=== PATIENT | male | born 1960 | race Caucasian/White ===

== ENCOUNTER 2019-12-03 09:05 | Inpatient (IN) | payer MEDICAID ==
[~2019-12-03] VITALS: Ht 165.1 cm; Wt 53.2 kg
[2019-12-03] MEDS ORDERED: SODIUM CHLORIDE 0.9% 1,000 ML IV ONE (09:59)
[2019-12-03] MEDS ORDERED: KETOROLAC 30MG/ML VIAL IV STA (09:59)
[2019-12-03 10:21] LABS: BASOPHILS % 1.4 % (0.0-2.0); EOSINOPHILS % 1.5 % (0.0-5.0); HEMATOCRIT. 42.7 % (42.0-52.0); HEMOGLOBIN. 14.8 g/dL (14.0-18.0); MEAN CORPUSCULAR HEMOGLOBIN 33.3 pg (28.0-32.0); MEAN CORPUSCULAR VOLUME 96.5 fL (80.0-94.0); MEAN PLATELET VOLUME 6.8 fl (7.4-10.4); MONOCYTES % 9.2 % (2.0-8.0); NEUTROPHILS % 59.9 % (40.0-76.0); PLATELET 192 x1000/uL (130-400); RED BLOOD CELL COUNT 4.43 mill/uL (4.7-6.1)
[2019-12-03 10:27] LABS: CHLORIDE 106 mEq/L (98-107)
[2019-12-03] MEDS ORDERED: KETOROLAC 15MG/ML VIAL IV ONE (11:45)
[2019-12-03] MEDS ORDERED: CLONIDINE 0.1MG TABLET PO PRN (13:15)
[2019-12-03] MEDS ORDERED: ONDANSETRON HCL 4MG/2ML INJ IV PRN (13:15)
[2019-12-03 13:26] LABS: PHOSPHORUS 3.2 mg/dL (2.5-4.9)
[2019-12-03] MEDS ORDERED: CHLORDIAZEPOXIDE 25MG CAPSULE PO NR (15:08)
[2019-12-03] MEDS: DIPHENHYDRAMINE 50MG/ML VIAL IV PRN ×2 (15:15→15:18)
[2019-12-03] MEDS: CHLORDIAZEPOXIDE 25MG CAPSULE PO SCH (15:15)
[2019-12-03] MEDS ORDERED: LORAZEPAM 2MG/ML CPJ IV PRN (16:00)
[2019-12-03] MEDS ORDERED: LORAZEPAM 1MG TABLET PO PRN (18:30)
[2019-12-03] MEDS: SODIUM CHLORIDE 0.9% 1,000 ML IV SCH (18:49)
[2019-12-03] MEDS ORDERED: FOLIC ACID 1 MG, THIAMINE HCL 100 MG, MVI, ADULT NO.1 10 ML in DEXTROSE 5% WATER 1,000 ML IV SCH ×4 (20:00)
[2019-12-03] MEDS ORDERED: IOHEXOL-300 100 ML BOTTLE ONE (22:58)
[2019-12-04] MEDS: CHLORDIAZEPOXIDE 25MG CAPSULE PO SCH ×2 (01:58→10:43)
[2019-12-04 05:40] LABS: BASOPHILS % 0.9 % (0.0-2.0); EOSINOPHILS % 1.1 % (0.0-5.0); HEMATOCRIT. 43.1 % (42.0-52.0); HEMOGLOBIN. 15.1 g/dL (14.0-18.0); LYMPHOCYTES % 20.6 % (20.0-50.0); MEAN CORPUSCULAR HEMOGLOBIN 33.4 pg (28.0-32.0); MEAN CORPUSCULAR VOLUME 95.3 fL (80.0-94.0); MEAN PLATELET VOLUME 6.8 fl (7.4-10.4); MONOCYTES % 12.5 % (2.0-8.0); NEUTROPHILS % 64.9 % (40.0-76.0); PLATELET 163 x1000/uL (130-400); RED BLOOD CELL COUNT 4.53 mill/uL (4.7-6.1); RED CELL DISTRIBUTION WIDTH 16.5 % (11.6-14.6)
[2019-12-04 05:48] LABS: CHLORIDE 100 mEq/L (98-107)
[2019-12-04 05:56] LABS: LDL CHOLESTEROL 58 mg/dL (5-100)
[2019-12-04 05:57] LABS: CREATINE KINASE 96 IU/L (39-308)
[2019-12-04 06:07] LABS: HDL CHOLESTEROL 140 mg/dL (40-59)
[2019-12-04] MEDS ORDERED: NICOTINE 21MG PATCH TD SCH (09:00)
[2019-12-04] MEDS: SODIUM CHLORIDE 0.9% 1,000 ML IV SCH (09:24)
[2019-12-04 10:48] VITALS: BP 137/88
[2019-12-04] MEDS ORDERED: LACTULOSE 20G/30ML UDC PO SCH (17:00)
== END 2019-12-04 11:45 | disposition left against medical advice (07) | DRG 280 ==
LOC: ER 09:05 → MICUSO 12:25
PROVIDERS: ADMIT Internal Medicine; ATTEND Internal Medicine
DX: K70.30 Alcoholic cirrhosis of liver without ascites (principal); R74.0 Nonspecific elevation of levels of transaminase and lactic acid dehydrogenase [LDH]; J44.9 Chronic obstructive pulmonary disease, unspecified; Z53.29 Procedure and treatment not carried out because of patient's decision for other reasons; C22.8 Malignant neoplasm of liver, primary, unspecified as to type; B19.20 Unspecified viral hepatitis C without hepatic coma; B19.10 Unspecified viral hepatitis B without hepatic coma; R73.9 Hyperglycemia, unspecified; D64.9 Anemia, unspecified; Z85.05 Personal history of malignant neoplasm of liver; Z88.5 Allergy status to narcotic agent; Z85.841 Personal history of malignant neoplasm of brain; Z72.89 Other problems related to lifestyle; Z85.46 Personal history of malignant neoplasm of prostate; F12.90 Cannabis use, unspecified, uncomplicated; F10.20 Alcohol dependence, uncomplicated; M47.9 Spondylosis, unspecified; M48.00 Spinal stenosis, site unspecified; I10 Essential (primary) hypertension
CPT/HCPCS: 36415; 71045; 74177; 76700; 80053; 80061; 82140; 82550; 83735; 83880; 84100; 84443; 84484; 85025; 93005; 93970; 99285; J1200; J1885; J3411; J3490; J7030; J7070; Q9967

== ENCOUNTER 2021-07-22 12:18 | Emergency (ER) | payer MEDICAID ==
[~2021-07-22] VITALS: Ht 177.8 cm; Wt 65.0 kg
[2021-07-22] MEDS ORDERED: ONDANSETRON HCL 4MG/2ML INJ IV ONE (13:00)
[2021-07-22] MEDS ORDERED: MORPHINE SULFATE 2 MG/ML CPJ (NOT FOR IM USE) IV ONE (13:00)
[2021-07-22 13:48] VITALS: BP 137/80
[2021-07-22 13:51] LABS: BASOPHILS % 1.9 % (0.0-2.0); EOSINOPHILS % 2.1 % (0.0-5.0); HEMATOCRIT. 39.5 % (42.0-52.0); HEMOGLOBIN. 14.1 g/dL (14.0-18.0); LYMPHOCYTES % 24.4 % (20.0-50.0); MEAN CORPUSCULAR HEMOGLOBIN 34.3 pg (28.0-32.0); MEAN CORPUSCULAR VOLUME 96.5 fL (80.0-94.0); MEAN PLATELET VOLUME 6.9 fl (7.4-10.4); MONOCYTES % 12.2 % (2.0-8.0); NEUTROPHILS % 59.4 % (40.0-76.0); PLATELET 127 x1000/uL (130-400); RED CELL DISTRIBUTION WIDTH 15.2 % (11.6-14.6)
[2021-07-22 13:59] LABS: CHLORIDE 109 mEq/L (98-107)
[2021-07-22 14:07] LABS: PARTIAL THROMBOPLASTIN TIME 27.8 sec (23.4-31.0); PROTHROMBIN TIME 10.9 sec (9.6-11.0)
== END 2021-07-22 13:59 | disposition left against medical advice (07) ==
LOC: ER 12:18
DX: R10.9 Unspecified abdominal pain (principal); Z88.5 Allergy status to narcotic agent; Z98.890 Other specified postprocedural states
CPT/HCPCS: 36415; 80053; 83690; 84484; 85025; 85610; 85730; 93005; 96374; 96375; 99284; J2270; J2405